=== PATIENT | male | born 1975 | race Caucasian/White ===

== ENCOUNTER → 2017-09-08 | Outpatient (CLI) | payer OTHER ==
[~2017-09-08] MED LIST: OMNIPAQUE 350 MG/ML, 100ML BOTTLE ONE; VALS1TAB19 PO
== END | disposition home or self-care (01) ==
LOC: RAD 16:58
PROVIDERS: ATTEND Internal Medicine
DX: R91.8 Other nonspecific abnormal finding of lung field (principal); I51.7 Cardiomegaly
CPT/HCPCS: 36415; 71275; 82565; Q9967